=== PATIENT | male | born 2000 | race Caucasian/White ===

== ENCOUNTER 2018-05-07 23:08 | Observation (INO) | payer OTHER ==
[2018-05-08 00:18] LABS: #Basophils 0.1 thou/uL (0.0-0.2); #Monocytes 0.5 thou/uL (0.11-0.59); #Neutrophils 5.5 thou/uL (1.40-6.50); %Basophils 0.7 % (0.0-1.0); %Eosinophils 0.5 % (0.0-10.0); %Lymphocytes 25.1 % (28.0-48.0); %Monocytes 5.5 % (0.0-4.0); %Neutrophils 68.1 % (31.0-61.0); Hemoglobin 14.8 g/dL (14.0-18.0); Mean Corpuscular HGB CONC 35.7 g/dL (32.0-36.0); Mean Corpuscular Hemoglobin 28.7 pg (25.0-35.0); Mean Corpuscular Volume 80.3 fL (78.0-98.0); Mean Platelet Volume 9.4 fL (7.4-10.4); Platelet Count 171 thou/uL (130-400); RBC Distribution Width 11.9 % (11.5-14.5); Red Blood Cell (RBC) Count 5.16 mill/uL (4.00-5.20); White Blood Cell (WBC) Count 8.1 thou/uL (4.8-10.8)
[2018-05-08 00:30] LABS: Bilirubin Negative (Negative); Blood, Urine Negative (Negative); Clarity CLEAR (Clear); Glucose, Urine (Dipstick) Negative (Negative); Leukocyte Negative (Negative); Nitrite Negative (Negative); Protein, Urine (Dipstick) Negative (Neg-Trace); Specific Gravity, Urine 1.012 (1.002-1.036)
[2018-05-08 00:35] LABS: Acetaminophen Less than 6.0 mcg/mL (10.0-30.0); Alcohol Less than 10 mg/dL (Less than 10); Salicylate Less than 8.0 mg/dL (15.0-30.0)
[2018-05-08 00:39] LABS: Amphetamine Not Detected (NotDetected); Barbiturates Screen Not Detected (NotDetected); Benzodiazepine Screen Not Detected (NotDetected); Cocaine Metabolite Screen Not Detected (NotDetected); Medtox Control Line Valid? VALID (VALID); Medtox Reader # READER 4; Methadone Not Detected (NotDetected); Methamphetamine Not Detected (NotDetected); Opiate Screen Not Detected (NotDetected); Oxycodone Screen Not Detected (NotDetected); Phencyclidine (PCP) Not Detected (NotDetected); THC/Cannabinoid Screen Not Detected (NotDetected); Tricyclic Screen Not Detected (NotDetected)
[2018-05-08 00:48] LABS: ALT (SGPT) 11 U/L (8-55); AST (SGOT) 13 U/L (10-45); Alkaline Phosphatase 60 U/L (Less than 750); Anion Gap 9 mmol/L (10-20); BUN (Urea Nitrogen) 8 mg/dL (8.4-21.0); Bilirubin, Total 0.5 mg/dL (0.2-1.2); CK (CPK) 69 U/L (30-200); Calc. Creatinine Clearance 0 mL/min (70-130); Calcium 10.2 mg/dL (7.8-10.44); Carbon Dioxide 28 mmol/L (22-29); Chloride 106 mmol/L (98-107); Estimated GFR-MDRD Greater than 90; Globulin 2.4 g/dL (2.4-3.5); Glucose 105 mg/dL (70-105); Lipase 10 U/L (8-78); Potassium 3.9 mmol/L (3.5-5.1); Protein, Total 7.4 g/dL (6.0-8.3); Sodium 139 mmol/L (136-145)
[2018-05-08 00:52] LABS: CKMB 0.3 ng/mL (0-6.6); Troponin I Less than 0.010 ng/mL (< 0.028)
[2018-05-08] MEDS ORDERED: Acetaminophen 325 MG TAB PO PRN (01:31)
[2018-05-08 01:56] VITALS: BMI 16.8
[2018-05-08] MEDS ORDERED: Ondansetron ODT 4 MG TAB SL PRN (01:56)
[2018-05-08] MEDS ORDERED: Ondansetron HCl/PF 4 MG/2 ML Vial IVP PRN (01:56)
[2018-05-08 04:29] LABS: #Basophils 0.1 thou/uL (0.0-0.2); #Eosinphils 0.1 thou/uL (0.0-0.7); #Lymphocytes 1.8 thou/uL (1.20-3.40); #Monocytes 0.5 thou/uL (0.11-0.59); #Neutrophils 3.9 thou/uL (1.40-6.50); %Basophils 1.1 % (0.0-1.0); %Lymphocytes 28.5 % (28.0-48.0); %Monocytes 7.6 % (0.0-4.0); %Neutrophils 61.7 % (31.0-61.0); Hemoglobin 13.6 g/dL (14.0-18.0); Mean Corpuscular HGB CONC 34.4 g/dL (32.0-36.0); Mean Corpuscular Hemoglobin 27.7 pg (25.0-35.0); Mean Corpuscular Volume 80.5 fL (78.0-98.0); Mean Platelet Volume 9.9 fL (7.4-10.4); Platelet Count 161 thou/uL (130-400); Red Blood Cell (RBC) Count 4.93 mill/uL (4.00-5.20); White Blood Cell (WBC) Count 6.4 thou/uL (4.8-10.8)
[2018-05-08 04:58] LABS: Anion Gap 14 mmol/L (10-20); BUN (Urea Nitrogen) 8 mg/dL (8.4-21.0); Calc. Creatinine Clearance 110 mL/min (70-130); Calcium 9.7 mg/dL (7.8-10.44); Carbon Dioxide 23 mmol/L (22-29); Chloride 105 mmol/L (98-107); Estimated GFR-MDRD Greater than 90; Glucose 105 mg/dL (70-105); Potassium 3.7 mmol/L (3.5-5.1); Sodium 138 mmol/L (136-145)
--- NOTE | 2018-05-08 07:20 | HP ---
PRIMARY CARE PHYSICIAN: The patient has no PCP. CODE STATUS: FULL CODE. TIME OF EVALUATION: 1:40 a.m. CHIEF COMPLAINT: Near syncope. HISTORY OF PRESENT ILLNESS: This 17-year-old male patient with past medical history of health, patie nt came to the hospital after having an episode of near syncope. The patient reported he started see ing white and black , also failed DC, and has an episode that lasted for just seconds. The [facility] was telling that the patient recovered by himself and had no shaking seizure-like activity, no mk rological symptoms were found, sequela from the symptoms. Symptoms were severe, with no clear trigge rs or alleviating factors. Of note, the patient has no family history of any young age, has soliman d excellent tolerance to exercise and exertion all his life. REVIEW OF SYSTEMS: Constitutional: No fevers. No generalized weakness. Respiratory: No cough, sp utum production, shortness of breath. Cardiovascular: No chest pain, palpitation. Gastrointestinal : No nausea, no vomiting, diarrhea or abdominal pain. 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 Genitourinary: No burning with urination. Extremities: No leg swelling. All other systems were reviewed and are negative except for the findings mentioned above. PAST MEDICAL HISTORY: Negative. PAST SURGICAL HISTORY: Negative. PSYCHIATRIC HISTORY: Negative. SOCIAL HISTORY: No drugs, alcohol, or smoking history. FAMILY HISTORY: Reviewed and noncontributory to current presentation. ALLERGIES: No known drug allergies. MEDICATIONS: None. PHYSICAL EXAMINATION: VITAL SIGNS: On presentation, blood pressure 139/79 with heart rate 77, respiratory rate was 18, tem perature 99.2. Pain was 0/10, oxygen saturation 98. GENERAL APPEARANCE: The patient is alert, oriented, no acute distress and no edema. HEENT: Eyes with normal conjunctivae. Oral mucosa dry, anicteric. NECK: No JVD. RESPIRATORY: Bilateral air entry. No rales or wheezing. Symmetric expansion. CARDIOVASCULAR: Normal rate, regular rhythm. No murmurs, no gallop. No edema. ABDOMEN: Soft, normal bowel sounds. MUSCULOSKELETAL: Baseline range of motion and strength. No tenderness. SKIN: Warm and intact. No pallor, no rash, or redness. Peripheral pulses are present. NEUROLOGIC: Capillary refill is distally intact. Neurovascular and sensorium, no evidence of any fo kim weakness. The patient has baseline speech. Cranial nerves are intact. PSYCHIATRIC: The patient is in a good mood. No anxiety. Oriented, optimal judgment. LABORATORY DATA: Reviewed by myself and discussed with her family physician from ER. The patient soliman s normal sinus rhythm with ventricular rate of 61, NV 132, QRS 100, QT corrected 358. The patient RS R prime pattern in V1 suggests right ventricular conduction delay; however, QRS is normal. CT was re viewed by myself. There is no evidence of any acute findings to my eye, official report from [facility] is pending. LABORATORY DATA: Reviewed. White count is 8.1, hemoglobin 14.8, MCV 80. Sodium 139, potassium 3.9, chloride 106, carbon dioxide 28, anion gap 9, BUN 8, creatinine 0.8, GFR 90, glucose 105, calcium 10 .2, total bilirubin 0.5. LFTs were normal. The UA was normal. Toxicology was negative. ASSESSMENT AND PLAN: The patient is in the hospital following medical problems. 1. Near syncope, in gentleman that he is 17 years old, most likely diagnosis to rule out is hypertro phic cardiomyopathy, will do echo in the morning, we will consult Cardiology, Dr. Payton has been c onsulted as per ER report to move all recommendations. 2. Deep venous thrombosis prophylaxis.
--- NOTE | 2018-05-08 08:14 | CT ---
PRELIMINARY REPORT/[facility]/EMERGENTY AFTER-HOURS PROCEDURE CT Head Without Intravenous Contrast EXAM DATE/TIME: 05/08/2018 1:38 AM CLINICAL HISTORY: 17 years old, male; Signs and symptoms; Syncope and collapse; Patient HX: Syncope. TECHNIQUE: Axial computed tomography images of the head/brain without intravenous contrast. COMPARISON: No relevant prior studies available. FINDINGS: Brain: Unremarkable. No hemorrhage. No significant white matter disease. No edema. Ventricles: Unremarkable. No ventriculomegaly. Bones/joints: Unremarkable. No acute fracture. Soft tissues: Unremarkable. Sinuses: Right maxillary sinus mucus retention cyst or polyp measures 12 mm. Mastoid air cells: Unremarkable as visualized. No mastoid effusion. IMPRESSION: No acute intracranial abnormality. Thank you for allowing us to participate in the care of your patient. Dictated and Authenticated by: Sebastian Becker MD 05/08/2018 1:48 AM Central Time ([place] & [place]) FINAL REPORT: NONCONTRAST HEAD CT: HISTORY: Syncope. COMPARISON: None. FINDINGS: This report is in agreement with the preliminary report by [facility]. No acute intracranial process. POS: EVELIA
[2018-05-08] MEDS ORDERED: Enoxaparin Sodium 40 MG/0.4 ML SYRINGE SC SCH (09:00)
--- NOTE | 2018-05-08 10:00 | PRG ---
DATE OF SERVICE: 05/08/2018 SUBJECTIVE: The patient was admitted early this morning. The patient was apparently at the dinner t able, took a bite of very hot food and felt the sensation all the way down to the esophagus. Within a few bites of that and less than 5 minutes later, the patient had an episode in which he had some vi sual changes and near syncope. The patient was subsequently brought to the emergency department for evaluation. He had an incomplete right bundle branch block and sinus tachycardia. He was subsequent ly admitted to the hospital. Lab results are generally unremarkable. CT of the head was unremarkabl e. Since that time, the patient has remained asymptomatic. He has remained in sinus rhythm on his t elemetry monitor. OBJECTIVE: VITAL SIGNS: Temperature 99, pulse 69, respirations 20, O2 sat 95%, blood pressure 111/58. GENERAL APPEARANCE: The patient is awake and alert, oriented, pleasant. HEART: Regular rate and rhythm without murmurs, gallops or rubs. LUNGS: Clear to auscultation bilaterally. ABDOMEN: Soft, nontender, nondistended with positive bowel sounds. No masses and organomegaly. EXTREMITIES: Warm and dry. LABORATORY DATA: Repeat labs notable for hemoglobin 13.6, otherwise CBC and chemistries are negative . IMPRESSION AND PLAN: Near syncopal episode in a patient with incomplete right bundle branch block on his EKG. Echocardiogram is pending. Cardiology consult is pending. We will also add a D-dimer and a TSH.
[2018-05-08 15:48] VITALS: BP 113/61; TEMP 98.7
--- NOTE | 2018-05-08 23:45 | CON ---
DATE OF CONSULTATION: 05/08/2018 HISTORY OF PRESENT ILLNESS: Ruben Taylor is a 17-year-old white male without any previous cardiac problems. He has complained to his father at times that he would have 10 seconds of somewhat sharp chest pain that then would resolve. He denies any exertional chest discomfort. He then had an episode yesterday where he was sitting to eat dinner and began to feel that things were spinning and that things looked somewhat sideways. He states that he could not talk, but family states that he was talking during this episode, never truly lost consciousness and he was brought to the emergency room for further evaluation. PAST MEDICAL HISTORY: Unremarkable. OPERATIONS: None. MEDICATIONS: None. ALLERGIES: None. SOCIAL HISTORY: Does not smoke or drink. REVIEW OF SYSTEMS: Twelve-point review of systems unremarkable. PHYSICAL EXAMINATION: VITAL SIGNS: Blood pressure 113/61, pulse of 54. HEENT: PERRL. NECK: Supple. CHEST: Clear. CARDIAC: S1 and S2 are normal, without any S3, S4 or murmurs. Carotid upstrokes normal. ABDOMEN: Normal bowel sounds, without tenderness. EXTREMITIES: Revealed no clubbing, cyanosis or edema. NEUROLOGIC: Grossly intact. LABORATORY DATA: EKG reveals normal sinus rhythm with incomplete right bundle branch block. Echocardiogram revealed no evidence of left ventricular hypertrophy. There was normal left ventricular contractility, ejection fraction of 50%-55% with mild mitral regurgitation and mild tricuspid regurgitation. IMPRESSION: 1. No evidence of any significant cardiac abnormalities. 2. Neurological symptoms of visual changes, unresponsiveness. RECOMMENDATIONS: From a cardiac standpoint, I do not feel any further evaluation is warranted. Consideration should be given to a neurological consultation. Some of his symptoms may be due to atypical migraine or possible absence seizure. ROBERTO
--- NOTE | 2018-05-09 15:01 | DIS ---
DATE OF ADMISSION: 05/07/2018 DATE OF DISCHARGE: 05/08/2018 DISCHARGE DIAGNOSES: 1. Near syncopal event. 2. Tinnitus. 3. Cerumen impaction. HISTORY OF PRESENT ILLNESS: The patient is a 17-year-old male who was in his usual state of good [facility]. He presented after he had set the dinner table and took a bite of very hot food. He felt somew hat burning him down his esophagus and the stomach. Within a couple minutes of that, the patient had an episode of becoming lightheaded, dizzy, and having some visual disturbances. He was subsequently brought to the emergency department. He had some nonspecific right ventricular conduction delay on his EKG. He was otherwise noted to have generally normal labs. HOSPITAL COURSE: The patient was admitted to the hospital on observation status. A CT scan of the b rain which was unremarkable. Given the patient's young age and the symptoms, there was concern for h ypertrophic obstructive cardiomyopathy. He underwent an echocardiogram which was normal. He was see n in consultation by Cardiology who felt the patient's symptoms were unlikely to be cardiac in nature . The patient remained asymptomatic throughout his stay. PHYSICAL EXAMINATION: VITAL SIGNS: On the day of discharge, temperature is 98.7, pulse 54, respirations 16, O2 sat 96-99% on room air, BP 113/61. GENERAL: He was awake, alert, oriented, pleasant, cooperative. HEENT: Exam did reveal bilateral cerumen impactions and no OP lesions. NECK: Supple and symmetric. HEART: Regular rate and rhythm without murmur. LUNGS: Clear. ABDOMEN: Benign. EXTREMITIES: Warm and dry. DISCHARGE INSTRUCTIONS: Disposition, the patient is discharged to home. He is to have a regular t and activity level. He is to follow up with the PCP closer to his home and consider referral to [facility] for outpatient evaluation, that number was given to the patient. He will be on no medication s and he can return to the hospital should he have any problems prior to following up with PCP. He a nd his mother were instructed on ear wash with peroxide and alcohol in order to address the cerumen i mpactions which are likely the source of his tinnitus as well.
== END 2018-05-08 17:36 | disposition home or self-care (01) ==
LOC: ERS 23:08 → 2SW 05-08 00:01
PROVIDERS: ADMIT Hospitalist; ATTEND Hospitalist
DX: R55 Syncope and collapse (principal); H93.19 Tinnitus, unspecified ear; H61.20 Impacted cerumen, unspecified ear
CPT/HCPCS: 36415; 70450; 80053; 80306; 80307; 81003; 82550; 82553; 83690; 84146; 84443; 84484; 85025; 85379; 93005; 93306; 96361; 96372; G0378; J1650